=== PATIENT | male | born 1990 | race Caucasian/White ===

== ENCOUNTER 2025-09-09 15:51 | Emergency (ER) | payer MEDICAID, OTHER ==
[~2025-09-09] VITALS: Ht 185.4 cm; Wt 77.1 kg
[2025-09-09 16:29] VITALS: BP 135/85; TEMP 98.1
[2025-09-09] MEDS ORDERED: FLUORESCEIN SODIUM OPHTH 1 EA STRIP ONE (17:43)
[2025-09-09] MEDS ORDERED: TETRAcaine 5 ML BOTTLE ONE (17:43)
[2025-09-09] MEDS: FLUORESCEIN SODIUM OPHTH 1 EA STRIP OP ONE (18:00)
[2025-09-09] MEDS: TETRACAINE HCL 0.5% OPHTALMIC 15 ML BOTTLE OP ONE (18:02)
[2025-09-09 18:04] VITALS: O2SAT 100
== END 2025-09-09 18:05 | disposition left against medical advice (07) ==
LOC: ER 16:07
DX: R51.9 Headache, unspecified (principal); Z86.19 Personal history of other infectious and parasitic diseases; Z79.624 Long term (current) use of inhibitors of nucleotide synthesis